=== PATIENT | male | born 1980 | race Hispanic/Latino ===

== ENCOUNTER 2017-06-12 13:05 | Emergency (ER) | payer SELFPAY ==
[~2017-06-12] VITALS: Ht 175.3 cm; Wt 79.4 kg
[2017-06-12 13:20] LABS: BASOPHILS % (AUTO) 0 % (0-10); EOSINOPHILS # (AUTO) 0.4 10^3/uL (0.0-0.3); EOSINOPHILS % (AUTO) 5 % (0-10); LYMPHOCYTES # (AUTO) 2.8 X 10^3 (1.0-4.0); LYMPHOCYTES % (AUTO) 34 % (12-44); MEAN CORPUSCULAR HEMOGLOBIN 31 PG (25-34); MEAN CORPUSCULAR HGB CONC 35 G/DL (32-36); MEAN CORPUSCULAR VOLUME 89 FL (80-99); MEAN PLATELET VOLUME 10.2 FL (7.4-10.4); MONOCYTES # (AUTO) 0.6 X 10^3 (0.0-1.0); MONOCYTES % (AUTO) 7 % (0-12); NEUTROPHILS # (AUTO) 4.4 X 10^3 (1.8-7.8); NEUTROPHILS % (AUTO) 54 % (42-75); PLATELET COUNT 252 10^3/uL (130-400); RED BLOOD COUNT 5.16 10^6/uL (4.35-5.85); RED CELL DISTRIBUTION WIDTH 13.2 % (10.0-14.5); WHITE BLOOD COUNT 8.2 10^3/uL (4.3-11.0)
[2017-06-12 13:25] LABS: INR 0.9 (0.8-1.4); PROTHROMBIN TIME PATIENT 11.8 SEC (12.2-14.7)
[2017-06-12 13:35] LABS: ALANINE AMINOTRANSFERASE 66 U/L (0-55); ALBUMIN 4.5 GM/DL (3.2-4.5); ANION GAP 13 MMOL/L (5-14); ASPARTATE AMINO TRANSFERASE 44 U/L (5-34); BILIRUBIN,TOTAL 0.7 MG/DL (0.1-1.0); BLOOD UREA NITROGEN 15 MG/DL (7-18); BUN/CREATININE RATIO 17; CALCIUM 9.5 MG/DL (8.5-10.1); CARBON DIOXIDE 21 MMOL/L (21-32); CHLORIDE 105 MMOL/L (98-107); GFR ESTIMATED > 60; GLUCOSE 95 MG/DL (70-105); MAGNESIUM 2.3 MG/DL (1.8-2.4); SODIUM 139 MMOL/L (135-145); TOTAL PROTEIN 8.1 GM/DL (6.4-8.2)
--- NOTE | 2017-06-12 13:53 | Diagnostic Imaging Report ---
EXAMINATION: Portable upright radiograph of the chest. INDICATION: Chest pain. FINDINGS: There is minimal prominence of the interstitial markings which could relate to incomplete inspiration with a possible element of minimal vascular congestion. The heart is mildly enlarged. There is no effusion or pneumothorax. The mediastinum and cole appear unremarkable. IMPRESSION: Enlarged cardiac silhouette with question of minimal pulmonary vascular congestion. Dictated by: Dictated on workstation # [id number]
--- NOTE | 2017-06-12 15:29 | ED Chest Pain ---
General Chief Complaint: Chest Pain Stated Complaint: CHEST PAIN/PALPITATIONS Nursing Triage Note: PT BROUGHT TO ED BY [facility] FROM [facility] WITH C/O CP RADIATING TO HIS JAW X 2 DAYS. PT DENIES N/V, SOA, DIAPHORESIS, OR ANY OTHER S/S. Nursing Sepsis Screen: No Definite Risk Source: patient Exam Limitations: no limitations History of Present Illness Time seen by provider: 13:05 Initial Comments 36-year-old male patient presents to the emergency department via [facility] from the [facility] with complaints of left chest pain radiating into the left jaw and left upper extremity for 2 days. Patient was seen for similar complaints 2 days ago in [place] emergency department and diagnosed with anger and anxiety. Timing/Duration: intermittent, 1-2 days Severity/Quality: sharp Location: other (Left chest) Radiation: other (radiates to the LUE and left jaw) Activities at Onset: none Prior CP/Workup: no prior chest pain Modifying Factors: worse with movement, worse with other (worse with palpation) Allergies and Home Medications Allergies Coded Allergies: No Known Drug Allergies (Unverified , 06/12/17) Home Medications Cyclobenzaprine HCl 10 Mg Tablet, 10 MG PO Q8H PRN for SPASMS, #14 Ref 0 Prescribed by: ROSAS GREENBERG on 06/12/17 1618 Naproxen 500 Mg Tablet, 500 MG PO BID, #20 Ref 0 Prescribed by: ROSAS GREENBERG on 06/12/17 1618 Review of Systems Constitutional: No chills, No diaphoresis, No dizziness, No fever, No malaise Respiratory: Denies Cough, Denies Orthopnea, Denies Shortness of Air, Denies SOA With Exertion Cardiovascular: See HPI, Chest Pain, Denies Irregular Heart Rate, Denies Lightheadedness, Denies Palpitations, Denies Syncope Gastrointestinal: Denies Abdominal Pain, Denies Constipated, Denies Diarrhea, Denies Nausea, Denies Vomiting Genitourinary: No Symptoms Reported Musculoskeletal: no symptoms reported Skin: no symptoms reported Psychiatric/Neurological: No Symptoms Reported All Other Systems Reviewed Negative Unless Noted: Yes (Negative excepted noted.) Past Migytoe-Etxewo-Bbwyfm Hx Patient Social History Alcohol Use: Occasionally Uses Recreational Drug Use: No Smoking Status: Never a Smoker 2nd Hand Smoke Exposure: No Recent Foreign Travel: No Contact w/Someone Who Travel: No Recent Infectious Disease Expo: No Recent Hopitalizations: No Seasonal Allergies Seasonal Allergies: No Surgeries HX Surgeries: No Respiratory Hx Respiratory Disorders: No Cardiovascular Hx Cardiac Disorders: No Neurological Hx Neurological Disorders: No Genitourinary Hx Genitourinary Disorders: No Gastrointestinal Hx Gastrointestinal Disorders: No Musculoskeletal Hx Musculoskeletal Disorders: No Endocrine Hx Endocrine Disorders: No HEENT HX ENT Disorders: No Psychosocial Behavioral Health Disorders: Anxiety Reviewed Nursing Assessment Reviewed/Agree w Nursing PMH: Yes Family Medical History Significant Family History: No Pertinent Family Hx Physical Exam Vital Signs Vital Sign - Last 12Hours 06/12/17 13:05 Temp 97.2 Pulse 59 Resp 25 B/P (MAP) 147/89 Pulse Ox 98 O2 Delivery Room Air Capillary Refill : Less Than 3 Seconds General Appearance: No Apparent Distress, WD/WN HEENT: PERRL/EOMI, Pharynx Normal Neck: Normal Inspection, Supple Respiratory: Lungs Clear, Normal Breath Sounds, No Respiratory Distress, Other (left lateral and anterior 6-8th ribs TTP without ecchymosis, swelling, or deformity.) Cardiovascular: Regular Rate, Rhythm, No Edema, No Gallop, No Murmur, Normal Peripheral Pulses Gastrointestinal: Normal Bowel Sounds, No Organomegaly, Non Tender, Soft Extremity: Normal Capillary Refill, No Pedal Edema Neurologic/Psychiatric: Alert, Oriented x3, Normal Mood/Affect Skin: Normal Color, Warm/Dry Progress/Results/Core Measures Results/Orders Lab Results Laboratory Tests Test 06/12/17 13:05 06/12/17 15:32 Range/Units White Blood Count 8.2 4.3-11.0 10^3/uL Red Blood Count 5.16 4.35-5.85 10^6/uL Hemoglobin 15.9 13.3-17.7 G/DL Hematocrit 46 40-54 % Mean Corpuscular Volume 89 80-99 FL Mean Corpuscular Hemoglobin 31 25-34 PG Mean Corpuscular Hemoglobin Concent 35 32-36 G/DL Red Cell Distribution Width 13.2 10.0-14.5 % Platelet Count 252 130-400 10^3/uL Mean Platelet Volume 10.2 7.4-10.4 FL Neutrophils (%) (Auto) 54 42-75 % Lymphocytes (%) (Auto) 34 12-44 % Monocytes (%) (Auto) 7 0-12 % Eosinophils (%) (Auto) 5 0-10 % Basophils (%) (Auto) 0 0-10 % Neutrophils # (Auto) 4.4 1.8-7.8 X 10^3 Lymphocytes # (Auto) 2.8 1.0-4.0 X 10^3 Monocytes # (Auto) 0.6 0.0-1.0 X 10^3 Eosinophils # (Auto) 0.4 H 0.0-0.3 10^3/uL Basophils # (Auto) 0.0 0.0-0.1 10^3/uL Prothrombin Time 11.8 L 12.2-14.7 SEC INR Comment 0.9 0.8-1.4 Activated Partial Thromboplast Time 28 24-35 SEC D-Dimer < 0.27 0.00-0.49 UG/ML Sodium Level 139 135-145 MMOL/L Potassium Level 4.0 3.6-5.0 MMOL/L Chloride Level 105 98-107 MMOL/L Carbon Dioxide Level 21 21-32 MMOL/L Anion Gap 13 5-14 MMOL/L Blood Urea Nitrogen 15 7-18 MG/DL Creatinine 0.90 0.60-1.30 MG/DL Estimat Glomerular Filtration Rate > 60 BUN/Creatinine Ratio 17 Glucose Level 95 70-105 MG/DL Calcium Level 9.5 8.5-10.1 MG/DL Magnesium Level 2.3 1.8-2.4 MG/DL Total Bilirubin 0.7 0.1-1.0 MG/DL Aspartate Amino Transf (AST/SGOT) 44 H 5-34 U/L Alanine Aminotransferase (ALT/SGPT) 66 H 0-55 U/L Alkaline Phosphatase 115 40-136 U/L Myoglobin 44.0 42.6 10.0-92.0 NG/ML Troponin I < 0.30 < 0.30 <0.30 NG/ML Total Protein 8.1 6.4-8.2 GM/DL Albumin 4.5 3.2-4.5 GM/DL My Orders Orders - ROSAS GREENBERG PA Cbc With Automated Diff (06/12/17 13:12) Magnesium (06/12/17 13:12) Chest 1 View, Ap/Pa Only (06/12/17 13:12) Ekg Tracing (06/12/17 13:12) Cardiac Profile 1 (06/12/17 13:12) Comprehensive Metabolic Panel (06/12/17 13:12) Myoglobin Serum (06/12/17 13:12) Protime With Inr (06/12/17 13:12) Partial Thromboplastin Time (06/12/17 13:12) Monitor-Rhythm Ecg Trace Only (06/12/17 13:12) Saline Lock/Iv-Start (06/12/17 13:12) Fibrin Degradation Products (06/12/17 13:12) Troponin I (06/12/17 15:31) Ekg Tracing (06/12/17 15:31) Myoglobin Serum (06/12/17 15:31) Ns Iv 1000 Ml (Sodium Chloride 0.9%) (06/12/17 15:31) Medications Given in ED Current Medications Medications Dose Ordered Sig/Olman Route Start Time Stop Time Status Last Admin Dose Admin Sodium Chloride 1,000 ml @ 0 mls/hr Q0M ONCE IV 06/12/17 15:31 06/12/17 15:33 DC 06/12/17 15:49 0 MLS/HR Vital Signs/I&O Vital Sign - Last 12Hours 06/12/17 06/12/17 13:05 13:05 Temp 97.2 Pulse 59 Resp 25 B/P (MAP) 147/89 Pulse Ox 98 O2 Delivery Room Air Room Air Blood Pressure Mean: 108 ECG Initial ECG Impression Date: Jun 12, 2017 Initial ECG Impression Time: 13:20 Initial ECG Rate: 54 Initial ECG Rhythm: S.Harrison Initial ECG Comparisson: No Previous ECG Available Comment Sinus bradycardia with borderline ST elevation. ECG reviewed by Dr. Liban De Leon. EKG : EKG Time: 15:41 Rate: 51 Rhythm: S.Harrison ECG Comparisson: Unchanged Comment Sinus rhythm with minimal ST elevation in V1/V2 most likely related to normal variant. ECG reviewed and discussed with Dr. De Leon. Diagnostic Imaging Diagonstic Imaging: Xray Plain Films/CT/US/NM/MRI: chest Comments FINDINGS: There is minimal prominence of the interstitial markings which could relate to incomplete inspiration with a possible element of minimal vascular congestion. The heart is mildly enlarged. There is no effusion or pneumothorax. The mediastinum and cole appear unremarkable. IMPRESSION: Enlarged cardiac silhouette with question of minimal pulmonary vascular congestion. Dictated by: Dictated on workstation # [id number] Reviewed: Reviewed by Me (radiology report reviewed by me) Departure Communication Progress Notes Patient seen and pain related. Baseline labs, chest x-ray, and ECG obtained. Troponin, myoglobin, and ECG were repeated 2 hours later. No changes and troponin, myoglobin, or ECG. Plan for discharge to home with follow-up as an outpatient with [facility]. Patient states he has an appointment Monday with [facility] for recheck. All return precautions were discussed with the patient as described in the discharge instructions of this report. Patient voices understanding and agrees with the treatment plan. Impression Impression: Primary Impression: Chest pain Qualified Codes: R07.82 - Intercostal pain Additional Impression: Rib pain on left side Disposition: HOME, SELF-CARE Condition: Improved Departure-Patient Inst. Decision time for Depature: 16:15 Patient Instructions: Chest Pain That Is Not Caused by the Heart (DC) Add. Discharge Instructions: All discharge instructions reviewed with patient and/or family. Voiced understanding. Medications as instructed. A heating pads or packs as needed for pain. Tylenol Extra Strength clnb-kpt-tduuelr as directed for pain. Follow -up with the family practitioner of your choice for recheck in the next 1-2 days , call for appointment time tomorrow morning. Return to the emergency department for increased chest pain, shortness of air, numbness, weakness, headache, dizziness, vomiting, or any other concerns. Scripts Naproxen (Naprosyn) 500 Mg Tablet 500 MG PO BID for Pain, #20 TAB 0 Refills Prov: ROSAS GREENBERG 06/12/17 Cyclobenzaprine HCl (Cyclobenzaprine HCl) 10 Mg Tablet 10 MG PO Q8H Y for SPASMS, #14 TAB 0 Refills Prov: ROSAS GREENBERG 06/12/17 ROSAS GREENBERG Jun 12, 2017 15:29
[2017-06-12] MEDS ORDERED: NS IV 1000 ML 1,000 ML IV ONE (15:31)
[2017-06-12 16:05] LABS: MYOGLOBIN SERUM 42.6 NG/ML (10.0-92.0); TROPONIN I < 0.30 NG/ML (<0.30)
[2017-06-12] MEDS ORDERED: NAPR500T PO (16:18)
[2017-06-12] MEDS ORDERED: CYCL10TA9 PO (16:18)
[2017-06-12 16:42] VITALS: BP 144/88
== END 2017-06-12 16:42 | disposition home or self-care (01) ==
LOC: ER 13:08
DX: R07.89 Other chest pain (principal); F41.9 Anxiety disorder, unspecified
CPT/HCPCS: 36415; 71010; 80053; 83735; 83874; 84484; 85025; 85379; 85610; 85730; 93005; 93041; 96360

== ENCOUNTER 2017-10-14 06:36 | Emergency (ER) | payer SELFPAY ==
[~2017-10-14] VITALS: Ht 162.6 cm; Wt 81.6 kg
[~2017-10-14 06:36] MED LIST: CYCL10TA9 PO; NAPR500T PO
--- OUTSIDE RECORDS SUMMARY | 2017-10-14 06:42 | XMS REPORT ---
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 Active 54462834 Problem Obesity (BMI 30.0-34.9) E66.9 Active 466276320452624 Problem Anxiety F41.9 Active 13843839 Problem Hypertriglyceridemia without hypercholesterolemia E78.1 Active 564268900 ALLERGIES No Known Allergies SOCIAL HISTORY Never Assessed PLAN OF CARE VITAL SIGNS Height 66 in 2016-12-28 Weight 186.2 lbs 2016-12-28 Temperature 98.4 degrees Fahrenheit 2016-12-28 Heart Rate 64 bpm 2016-12-28 Respiratory Rate 18 2016-12-28 BMI 30.05 kg/m2 2016-12-28 Blood pressure systolic 124 mmHg 2016-12-28 Blood pressure diastolic 76 mmHg 2016-12-28 MEDICATIONS Medication Instructions Dosage Frequency Start Date End Date Duration Status Amoxicillin 500 MG Orally 8 1 capsule Dec, Dec, 10 day( s) Active PredniSONE 20 MG Orally twice a day 1 tablet 12h Dec, Dec, 5 days Active RESULTS Name Result Date Reference Range STREP A (IN HOUSE) 2016-12-28 STREP A positive Control + Lot # [id number] Exp date jul 31 PROCEDURES Procedure Date Ordered Result Body Site STREP A ASSAY W/OPTIC Dec 28, 2016 IMMUNIZATIONS No Known Immunizations
--- OUTSIDE RECORDS SUMMARY | 2017-10-14 06:42 | XMS REPORT ---
Author Author VANDA DOVE Organization 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 Active 05573311 Problem Hypertriglyceridemia without hypercholesterolemia E78.1 Active 500289970 Problem Obesity (BMI 30.0-34.9) E66.9 Active 396537057714266 Problem Anxiety F41.9 Active 57285626 ALLERGIES No Known Allergies SOCIAL HISTORY Never Assessed PLAN OF CARE Activity Details Follow Up prn Reason: VITAL SIGNS Height 66 in 2017-03-14 Weight 189.4 lbs 2017-03-14 Temperature 97.5 degrees Fahrenheit 2017-03-14 Heart Rate 80 bpm 2017-03-14 Respiratory Rate 20 2017-03-14 BMI 30.57 kg/m2 2017-03-14 Blood pressure systolic 112 mmHg 2017-03-14 Blood pressure diastolic 80 mmHg 2017-03-14 MEDICATIONS Medication Instructions Dosage Frequency Start Date End Date Duration Status Clarithromycin 500 MG Orally every 12 hrs 1 tablet March,March 14 days Active Amoxicillin 500 MG Orally every 12 hrs 2 capsule h March, March, 14 days Active Omeprazole 20 MG Orally twice a day 1 capsule March, 30 day(s ) Active RESULTS Name Result Date Reference Range H PYLORI (IN HOUSE) 2017-03-14 H. PYLORI positive Control + Lot # [id number] Exp date 2017-10-12 PROCEDURES Procedure Date Ordered Result Body Site IMMUNOASSAY,INFECTIOUS AGENT March 14, 2017 IMMUNIZATIONS No Known Immunizations
[2017-10-14] MEDS ORDERED: NS IV 1000 ML 1,000 ML IV ONE (07:10)
[2017-10-14 07:29] LABS: BASOPHILS % (AUTO) 0 % (0-10); EOSINOPHILS # (AUTO) 0.3 10^3/uL (0.0-0.3); EOSINOPHILS % (AUTO) 7 % (0-10); LYMPHOCYTES # (AUTO) 1.9 X 10^3 (1.0-4.0); LYMPHOCYTES % (AUTO) 40 % (12-44); MEAN CORPUSCULAR HEMOGLOBIN 31 PG (25-34); MEAN CORPUSCULAR HGB CONC 35 G/DL (32-36); MEAN CORPUSCULAR VOLUME 90 FL (80-99); MEAN PLATELET VOLUME 9.9 FL (7.4-10.4); MONOCYTES # (AUTO) 0.3 X 10^3 (0.0-1.0); MONOCYTES % (AUTO) 7 % (0-12); NEUTROPHILS # (AUTO) 2.2 X 10^3 (1.8-7.8); NEUTROPHILS % (AUTO) 47 % (42-75); PLATELET COUNT 280 10^3/uL (130-400); RED BLOOD COUNT 4.84 10^6/uL (4.35-5.85); RED CELL DISTRIBUTION WIDTH 12.5 % (10.0-14.5); WHITE BLOOD COUNT 4.8 10^3/uL (4.3-11.0)
[2017-10-14 07:47] LABS: ALANINE AMINOTRANSFERASE 54 U/L (0-55); ALBUMIN 4.5 GM/DL (3.2-4.5); ANION GAP 10 MMOL/L (5-14); ASPARTATE AMINO TRANSFERASE 32 U/L (5-34); BILIRUBIN,TOTAL 0.7 MG/DL (0.1-1.0); BLOOD UREA NITROGEN 11 MG/DL (7-18); BUN/CREATININE RATIO 13; CALCIUM 9.1 MG/DL (8.5-10.1); CARBON DIOXIDE 25 MMOL/L (21-32); CHLORIDE 105 MMOL/L (98-107); CREATININE SERUM 0.85 MG/DL (0.60-1.30); GFR ESTIMATED > 60; GLUCOSE 93 MG/DL (70-105); POTASSIUM 3.7 MMOL/L (3.6-5.0); SODIUM 140 MMOL/L (135-145); TOTAL PROTEIN 7.6 GM/DL (6.4-8.2); hs C REACTIVE PROTEIN 0.07 MG/DL (0.00-0.50)
[2017-10-14] MEDS ORDERED: KETOROLAC 30 MG/ML VIAL IVP STA (07:47)
--- NOTE | 2017-10-14 07:47 | ED General ---
General Chief Complaint: General Problems/Pain Stated Complaint: DIZZINESS Nursing Triage Note: Patient advises he was eating this morning and shortly after began experiencing pain in his lower throat. He denies choking while eating and he denies difficulty swallowing. Nursing Sepsis Screen: No Definite Risk Source of Information: Patient Exam Limitations: No Limitations History of Present Illness Time Seen by Provider: 06:50 Initial Comments Here with report of a variety of complaints but states that is having difficulty breathing and swallowing has some pain in his lower throat and upper chest. Also complains of sweating in his hands and feeling anxious. Does have history of cholesterol problems and is on medication for that. States that they increased his dose yesterday. Denies sore throat, breathing problems, nasal congestion or cough. Denies fever or chills. Timing/Duration: 1-3 Hours Severity: Moderate Associated Systoms: Chest Pain, No Fever/Chills, No Nausea/Vomiting, Shortness of Air, No Weakness Allergies and Home Medications Allergies Coded Allergies: No Known Drug Allergies (Unverified , 06/12/17) Home Medications Cyclobenzaprine HCl 10 Mg Tablet, 10 MG PO Q8H PRN for SPASMS, #14 Ref 0 Prescribed by: ROSAS GREENBERG on 06/12/17 1618 Naproxen 500 Mg Tablet, 500 MG PO BID, #20 Ref 0 Prescribed by: ROSAS GREENBERG on 06/12/17 1618 Constitutional: see HPI, No chills, No fever EENTM: No mouth swelling, No nose congestion, No nose pain Respiratory: No cough, short of breath Cardiovascular: see HPI, No edema Gastrointestinal: No abdominal pain, No nausea, No vomiting Genitourinary: no symptoms reported Musculoskeletal: no symptoms reported All Other Systems Reviewed Negative Unless Noted: Yes Past Ydlsgwf-Jlddrr-Lztemr Hx Patient Social History Alcohol Use: Denies Use Recreational Drug Use: No Smoking Status: Never a Smoker 2nd Hand Smoke Exposure: No Recent Foreign Travel: No Contact w/Someone Who Travel: No Recent Infectious Disease Expo: No Recent Hopitalizations: No Physical Abuse: No Sexual Abuse: No Seasonal Allergies Seasonal Allergies: No Surgeries History of Surgeries: No Respiratory History of Respiratory Disorde: No Cardiovascular History of Cardiac Disorders: No Neurological History of Neurological Disord: No Gastrointestinal History of Gastrointestinal Di: No Musculoskeletal History of Musculoskeletal Dis: No Endocrine History of Endocrine Disorders: No Psychosocial History of Psychiatric Problem: Yes Behavioral Health Disorders: Anxiety Suicide Risk Score: 0 Reviewed Nursing Assessment Reviewed/Agree w Nursing PMH: Yes Family Medical History Significant Family History: No Pertinent Family Hx Physical Exam Vital Signs Vital Sign - Last 12Hours 10/14/17 06:55 Temp 97.7 Pulse 14 B/P (MAP) 138/96 (110) Pulse Ox 98 O2 Delivery Room Air Capillary Refill : Less Than 3 Seconds General Appearance: No Apparent Distress, WD/WN HEENT: TMs Normal, Pharyngeal Erythema Neck: Non Tender, Supple Respiratory: Lungs Clear, Normal Breath Sounds Cardiovascular: Regular Rate, Rhythm, No Murmur Gastrointestinal: Non Tender, Soft Extremity: Normal Range of Motion, Non Tender Neurologic/Psychiatric: Alert, Oriented x3 Skin: Normal Color, Warm/Dry Progress/Results/Core Measures Suspected Sepsis Recent Fever Within 48 Hours: No Infection Criteria Present: None New/Unexplained Altered Menta: No Sepsis Screen: No Definite Risk Sepsis Diagnosis: SIRS Temperature:97.7 Pulse: 14 Respiratory Rate: Laboratory Tests 10/14/17 07:20: White Blood Count 4.8 Blood Pressure 138 /96 Mean: 110 Laboratory Tests 10/14/17 07:20: Creatinine 0.85, Platelet Count 280, Total Bilirubin 0.7 Results/Orders Lab Results Laboratory Tests Test 10/14/17 07:20 10/14/17 07:40 Range/Units White Blood Count 4.8 4.3-11.0 10^3/uL Red Blood Count 4.84 4.35-5.85 10^6/uL Hemoglobin 15.1 13.3-17.7 G/DL Hematocrit 44 40-54 % Mean Corpuscular Volume 90 80-99 FL Mean Corpuscular Hemoglobin 31 25-34 PG Mean Corpuscular Hemoglobin Concent 35 32-36 G/DL Red Cell Distribution Width 12.5 10.0-14.5 % Platelet Count 280 130-400 10^3/uL Mean Platelet Volume 9.9 7.4-10.4 FL Neutrophils (%) (Auto) 47 42-75 % Lymphocytes (%) (Auto) 40 12-44 % Monocytes (%) (Auto) 7 0-12 % Eosinophils (%) (Auto) 7 0-10 % Basophils (%) (Auto) 0 0-10 % Neutrophils # (Auto) 2.2 1.8-7.8 X 10^3 Lymphocytes # (Auto) 1.9 1.0-4.0 X 10^3 Monocytes # (Auto) 0.3 0.0-1.0 X 10^3 Eosinophils # (Auto) 0.3 0.0-0.3 10^3/uL Basophils # (Auto) 0.0 0.0-0.1 10^3/uL D-Dimer < 0.27 0.00-0.49 UG/ML Sodium Level 140 135-145 MMOL/L Potassium Level 3.7 3.6-5.0 MMOL/L Chloride Level 105 98-107 MMOL/L Carbon Dioxide Level 25 21-32 MMOL/L Anion Gap 10 5-14 MMOL/L Blood Urea Nitrogen 11 7-18 MG/DL Creatinine 0.85 0.60-1.30 MG/DL Estimat Glomerular Filtration Rate > 60 BUN/Creatinine Ratio 13 Glucose Level 93 70-105 MG/DL Calcium Level 9.1 8.5-10.1 MG/DL Total Bilirubin 0.7 0.1-1.0 MG/DL Aspartate Amino Transf (AST/SGOT) 32 5-34 U/L Alanine Aminotransferase (ALT/SGPT) 54 0-55 U/L Alkaline Phosphatase 76 40-136 U/L Troponin I < 0.30 <0.30 NG/ML C-Reactive Protein High Sensitivity 0.07 0.00-0.50 MG/DL Total Protein 7.6 6.4-8.2 GM/DL Albumin 4.5 3.2-4.5 GM/DL Group A Streptococcus Screen NEGATIVE NEGATIVE My Orders Orders - CUCA CLARKE MD Chest Pa/Lat (2 View) (10/14/17 06:54) Saline Lock/Iv-Start (10/14/17 06:54) Ekg Tracing (10/14/17 06:54) Cbc With Automated Diff (10/14/17 06:54) Comprehensive Metabolic Panel (10/14/17 06:54) Hs C Reactive Protein (10/14/17 06:54) Fibrin Degradation Products (10/14/17 06:54) Troponin I (10/14/17 06:54) Ns Iv 1000 Ml (Sodium Chloride 0.9%) (10/14/17 07:10) Rapid Strep A Screen (10/14/17 07:35) Ketorolac Injection (Toradol Injection) (10/14/17 07:47) Medications Given in ED Current Medications Medications Dose Ordered Sig/Olman Route Start Time Stop Time Status Last Admin Dose Admin Sodium Chloride 1,000 ml @ 0 mls/hr Q0M ONCE IV 10/14/17 07:10 10/14/17 07:11 DC 10/14/17 07:27 1,000 MLS/HR Vital Signs/I&O Vital Sign - Last 12Hours 10/14/17 06:55 Temp 97.7 Pulse 14 B/P (MAP) 138/96 (110) Pulse Ox 98 O2 Delivery Room Air Capillary Refill : Less Than 3 Seconds Blood Pressure Mean: 110 Progress Note : Progress Note Seen and evaluated. Patient's story is a little challenging in that he has the throat findings but is also having some difficulty in the upper chest that is associated with sweating. Has history of elevated cholesterol. We will rule out cardiac event as a part of this due to the sweating of the hands and upper chest pain. IV, labs, chest x-ray and EKG ordered. Normal saline 1 L bolus. Toradol 30 mg IV ordered. Monitor patient. 0814: Overall better. No significant findings on any evaluation at this point. Symptoms have moved more towards the throat now and phlegm production. This appears to be more upper respiratory type symptoms and there is no indication of cardiac concerns at this point. Decadron 10 mg IV. Discharged home with return precautions. Patient verbalize understanding instructions and agreement with plan. ECG Initial ECG Impression Date: Oct 14, 2017 Initial ECG Impression Time: 07:22 Initial ECG Rate: 55 Comment Sinus rhythm with leftward axis. No evidence of ST elevation VT. Similar to previous of 06/12/17. Interpreted by me. Diagnostic Imaging Diagonstic Imaging: Xray Plain Films/CT/US/NM/MRI: chest Comments NAME: CONY GUERRIER [facility] REC#: [id number] PT STATUS: REG ER : 1980 PHYSICIAN: CUCA CLARKE MD ADMIT DATE: 10/14/17/ER Draft Date of Exam:10/14/17 CHEST PA/LAT (2 VIEW) INDICATION: Sore throat. COMPARISON: 06/12/2017 TECHNIQUE: Frontal and lateral radiographs of the chest dated 10/14/2017 FINDINGS: The cardiac silhouette is within normal limits. No significant pulmonary vascular congestion. The lungs are clear of focal pulmonary opacity. No pleural effusion. No pneumothorax. No acute osseous abnormality. IMPRESSION: No acute cardiopulmonary abnormality. Dictated on workstation # [id number] Dict: 10/14/17 0746 Trans: 10/14/17 0758 [id number] Interpreted by: TERRELL COLLADO MD Electronically signed by: Departure Impression Impression: Primary Impression: Upper respiratory infection, viral Disposition: 01 HOME, SELF-CARE Condition: Improved Departure-Patient Inst. Decision time for Depature: 08:16 Referrals: NO,LOCAL PHYSICIAN (PCP/Family) Primary Care Physician Patient Instructions: Viral Upper Respiratory Infection, Adult (DC) Add. Discharge Instructions: All discharge instructions reviewed with patient and/or family. Voiced understanding. You may take ibuprofen 800 mg every 8 hours as needed for pain. You may take Tylenol 1000 mg every 8 hours as needed for pain. You may use Afrin nasal spray or the generic, 12 hour relief, 2 sprays to each nostril twice daily for 3 days only and then stop. Do not use more than 3 days. Drink plenty of fluids. Follow-up with your Dr. in a few days for recheck. Return for worse pain, fever, vomiting, weakness, breathing problems or other concerns as needed. CUCA CLARKE MD Oct 14, 2017 07:47
[2017-10-14 07:53] LABS: TROPONIN I < 0.30 NG/ML (<0.30)
--- NOTE | 2017-10-14 07:58 | Diagnostic Imaging Report ---
INDICATION: Sore throat. COMPARISON: 06/12/2017 TECHNIQUE: Frontal and lateral radiographs of the chest dated 10/14/2017 FINDINGS: The cardiac silhouette is within normal limits. No significant pulmonary vascular congestion. The lungs are clear of focal pulmonary opacity. No pleural effusion. No pneumothorax. No acute osseous abnormality. IMPRESSION: No acute cardiopulmonary abnormality. Dictated by: Dictated on workstation # [id number]
[2017-10-14] MEDS ORDERED: DEXAMETHASONE PF 10 MG/ML (DECADRON) VIAL IV STA (08:17)
[2017-10-14] MEDS ORDERED: DEXAMETHASONE 10 MG/ML (DECADRON) 1 ML VIAL IV ONE (08:30)
[2017-10-14 08:34] VITALS: BP 113/72
== END 2017-10-14 08:34 | disposition home or self-care (01) ==
LOC: EDUNIT# 06:36 → ER 06:37
DX: J06.9 Acute upper respiratory infection, unspecified (principal); F41.9 Anxiety disorder, unspecified
CPT/HCPCS: 36415; 71020; 80053; 84484; 85025; 85379; 86141; 87430; 93005